=== PATIENT | female | born 2000 | race Two or more races ===

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

== ENCOUNTER 2020-02-07 19:23 | Emergency (ER) | payer SELFPAY ==
[~2020-02-07] VITALS: Ht 165.1 cm; Wt 104.0 kg
[~2020-02-07 19:23] MED LIST changes: +PRED20TA PO
[2020-02-07 19:25] VITALS: BP 131/74
[2020-02-07] MEDS ORDERED: CEPH-264 PO (19:38)
--- NOTE | 2020-02-07 19:38 | PHYS DOC ---
Past History Past Medical History: Asthma, Migraines Additional Past Surgical Histo: [place] teeth Smoking: Non-smoker Alcohol Use: None Drug Use: None General Adult EDM: Chief Complaint: FACE PROBLEM HPI: HPI: 19-year-old female presents with report of pain and swelling to inside of right nostril x 1 week. Patient reports has gotten significantly bigger over last 4 days. Patient denies known trauma. Denies fever or chills. Denies . Review of Systems: Review of Systems: Constitutional: Denies fever or chills Eyes: Denies redness or eye pain HENT: Denies nasal congestion or sore throat; reports pain and swelling to right nostril Respiratory: Denies cough or shortness of breath Cardiovascular: Denies chest pain or palpitations GI: Denies abdominal pain, nausea, or vomiting : Denies dysuria or hematuria Musculoskeletal: Denies back pain or joint pain Integument: Denies rash; reports abscess to inside of right nostril Neurologic: Denies headache, focal weakness or sensory changes Complete systems were reviewed and found to be within normal limits, except as documented in this note. Allergies: Allergies: Allergies Coded Allergies Type Severity Reaction Last Updated Verified No Known Drug Allergies 06/02/18 No Physical Exam: PE: Constitutional: Well developed, well nourished, no acute distress, non-toxic appearance HENT: Normocephalic, atraumatic, oropharynx moist, small pustule to inside of right nare with mild surrounding erythema Eyes: Conjunctiva normal, no discharge Neck: Normal range of motion, no tenderness Lungs & Thorax: No respiratory distress, equal chest rise and fall Skin: Warm, dry, no erythema, abscess as above Neurologic: Alert and oriented X 3, no focal deficits noted Psychologic: Affect normal, judgment normal EKG: EKG: [] Radiology/Procedures: Radiology/Procedures: [] Course & Med Decision Making: Course & Med Decision Making Patient presents with history of present illness and physical exam consistent for small abscess to inner mucosal surface of right nostril. Abscess expressed with Q-tips. Empiric antibiotic ointment applied. Prescription for oral antibiotics provided with instructions to wait until tomorrow. If symptoms worsen or for fever greater than 100.3 F, patient to start oral antibiotic therapy. If symptoms improve, then patient to hold oral antibiotic therapy. Patient stable for discharge with outpatient follow-up with PCP. Discussed findings and plan with patient, who acknowledges understanding and agreement. Pamela Disclaimer: Pamela Disclaimer: This electronic medical record was generated, in whole or in part, using a voice recognition dictation system. Incision and Drainage Incision and Drainage : Site: Right inner nostril Progress Verbal consent obtained. Time out performed. Hand hygiene utilized. Abscess to right nostril mucosal surface expressed with long Qtip with expression of small amount of purulent discharge. Patient tolerated procedure well and without difficulty. Empiric antibiotic ointment applied. Departure Departure: Impression: Primary Impression: Nasal abscess Disposition: HOME, SELF-CARE Condition: STABLE Referrals: PCP,SASHA (PCP) Patient Instructions: Abscess, Care After Additional Instructions: Use over the counter antibiotic ointment (Neosporin) to wound twice daily. Hold oral antibiotics till AM. If symptoms worsen or for fever > 100.3 F then start oral antibiotics as prescribed. Scripts Cephalexin (KEFLEX) 500 Mg Capsule 1 CAP PO QID for Infection for 7 Days, #28 CAP 0 Refills Prov: CARLENE PINA DO 02/07/20 CARLENE PINA DO Feb 07, 2020 19:38
[2020-02-07] MEDS ORDERED: NEOMY/BACITR/POLYMYXIN OINT PACKET. TP ONE (19:45)
== END 2020-02-07 19:45 | disposition home or self-care (01) ==
LOC: ER 19:23
DX: J34.0 Abscess, furuncle and carbuncle of nose (principal); J45.909 Unspecified asthma, uncomplicated; G43.909 Migraine, unspecified, not intractable, without status migrainosus
CPT/HCPCS: 99283

== ENCOUNTER 2020-02-16 13:29 | Emergency (ER) | payer OTHER ==
[~2020-02-16] VITALS: Ht 165.1 cm; Wt 103.7 kg
[2020-02-16] MEDS ORDERED: NALOXONE 2 MG/2 ML DISP.SYRIN. IV ONE ×2 (13:35→14:15)
[2020-02-16 13:56] LABS: BGAS PH 7.44 (7.35-7.45)
[2020-02-16 13:56] LABS: BASO # 0.1 x10^3/uL (0.0-0.2); BASO % 1 % (0-3); EOS # 0.5 x10^3/uL (0.0-0.7); EOS % 3 % (0-3); HEMATOCRIT 47.4 % (36.0-47.0); LYMPH # 4.1 x10^3/uL (1.0-4.8); LYMPH % 27 % (24-48); MEAN CORPUSCULAR HEMOGLOBIN 29 pg (25-35); MEAN CORPUSCULAR HGB CONC 34 g/dL (31-37); MEAN CORPUSCULAR VOLUME 86 fL (79-100); MONO # 0.9 x10^3/uL (0.0-1.1); MONO % 6 % (0-9); NEUT # 9.6 x10^3uL (1.8-7.7); NEUT % 63 % (31-73); PLATELET COUNT 251 x10^3/uL (140-400); RED CELL DISTRIBUTION WIDTH 13.2 % (11.5-14.5); WHITE BLOOD COUNT 15.2 x10^3/uL (4.0-11.0)
--- NOTE | 2020-02-16 14:04 | RAD ---
CHEST AP ONLY Clinical History: Overdose Technique: AP view of the chest was obtained at 02/16/2020 1:44 PM. Comparison: June 02, 2018. Findings: The cardiomediastinal silhouette is normal. The pulmonary vasculature is normal. The lungs and pleural margins are clear. Impression: No evidence of an acute cardiopulmonary process. Electronically signed by: Virgilio Sullivan III, MD (02/16/2020 2:01 PM) [id number]
[2020-02-16 14:09] LABS: ACETAMIN 226.2 mcg/mL (10-30); CALCIUM 9.2 mg/dL (8.5-10.1); CREATININE 0.8 mg/dL (0.6-1.0); GFR 92.4; POTASSIUM 3.7 mmol/L (3.5-5.1)
--- NOTE | 2020-02-16 14:19 | EKG ---
[address] [address] Test Date: 2020-02-16 Test Time: 13:35:24 Pat Name: ABRAHAM BUCKNER Department: Room: Gender: F Checker Loader: : 2000 Requested By: HERIBERTO MAYER Order Number: [id number] Reading MD: Jean Alvarado Measurements Intervals [place] Rate: 122 P: 211 MO: 130 QRS: 100 QRSD: 84 T: 34 QT: 350 QTc: 500 Interpretive Statements SINUS TACHYCARDIA RIGHTWARD AXIS Electronically Signed On 02-18-2020 20:00:20 CDT by Jean Alvarado
[2020-02-16 14:20] LABS: ALBUMIN 3.7 g/dL (3.4-5.0); ALBUMIN/GLOBULIN RATIO 0.9 (1.0-1.7); TOTAL BILIRUBIN 0.7 mg/dL (0.2-1.0); TOTAL PROTEIN 7.9 g/dL (6.4-8.2)
[2020-02-16 14:20] LABS: AMPHETAMINE/METHAMPHETAMINE POS (NEG); BARBITURATES NEG (NEG); BENZODIAZEPINES POS (NEG); CANNABINOIDS POS (NEG); COCAINE POS (NEG); METHADONE NEG (NEG); OPIATES NEG (NEG); PHENCYCLIDINE NEG (NEG)
--- NOTE | 2020-02-16 14:27 | PHYS DOC ---
Past History Past Medical History: Asthma, Migraines Past Surgical History: Other Additional Past Surgical Histo: [place] teeth, tonsilectomy Smoking: Non-smoker Alcohol Use: None Drug Use: None General Adult EDM: Chief Complaint: OVERDOSE HPI: HPI: 19-year-old female presents via EMS as suspected overdose. EMS was called by someone when they arrived on the scene and several people were there stating they think the patient took some pills. They will give conflicting stories and then everyone ran away. The patient was unresponsive. They attempted 1 mg IM of Narcan without effect. She is moving her extremities spontaneously, but cannot follow any commands. She does not provide any history to me. A nasal trumpet was placed in route. They were able to get reasonable oxygen saturations on 15 L with a nonrebreather. Intubation was not attempted. The patient has no known COVID-19 exposures. She has open her eyes spontaneously. Review of Systems: Review of Systems: Constitutional: Denies fever or chills Eyes: Denies change in visual acuity HENT: Denies nasal congestion or sore throat Respiratory: Denies cough or shortness of breath Cardiovascular: Denies chest pain or edema GI: Denies abdominal pain, nausea, vomiting, bloody stools or diarrhea : Denies dysuria Musculoskeletal: Denies back pain or joint pain Integument: Denies rash Neurologic: Denies headache, focal weakness or sensory changes Endocrine: Denies polyuria or polydipsia Lymphatic: Denies swollen glands Psychiatric: Denies depression or anxiety Heart Score: Risk Factors: Risk Factors: DM, Current or recent (<one month) smoker, HTN, HLP, family history of CAD, obesity. Risk Scores: Score 0 - 3: 2.5% MACE over next 6 weeks - Discharge Home Score 4 - 6: 20.3% MACE over next 6 weeks - Admit for Clinical Observation Score 7 - 10: 72.7% MACE over next 6 weeks - Early Invasive Strategies Current Medications: Current Meds: Current Medications Medications (Trade) Dose Ordered Sig/Rosa Start Time Stop Time Status Last Admin Dose Admin Naloxone HCl (Narcan) 2 mg 1X ONCE 02/16/20 14:15 02/16/20 14:16 02/16/20 13:37 2 MG Allergies: Allergies: Allergies Coded Allergies Type Severity Reaction Last Updated Verified No Known Drug Allergies 06/02/18 No Physical Exam: PE: Constitutional: Well developed, well nourished, no acute distress, non-toxic appearance. [] HENT: Normocephalic, atraumatic, bilateral external ears normal, oropharynx moist, no oral exudates, nose normal. [] Eyes: PERRLA, EOMI, conjunctiva normal, no discharge. [] Neck: Normal range of motion, no tenderness, supple, no stridor. [] Cardiovascular:Heart rate regular rhythm, no murmur [] Lungs & Thorax: Bilateral breath sounds clear to auscultation [] Abdomen: Bowel sounds normal, soft, no tenderness, no masses, no pulsatile masses. [] Skin: Warm, dry, no erythema, no rash. [] Back: No tenderness, no CVA tenderness. [] Extremities: No tenderness, no cyanosis, no clubbing, ROM intact, no edema. [] Neurologic: Alert and oriented X 3, normal motor function, normal sensory function, no focal deficits noted. [] Psychologic: Affect normal, judgement normal, mood normal. [] Current Patient Data: Labs: Laboratory Tests Test 02/16/20 13:30 02/16/20 13:40 White Blood Count 15.2 x10^3/uL (4.0-11.0) H Red Blood Count 5.50 x10^6/uL (3.50-5.40) H Hemoglobin 16.0 g/dL (12.0-15.5) H Hematocrit 47.4 % (36.0-47.0) H Mean Corpuscular Volume 86 fL (79-100) Mean Corpuscular Hemoglobin 29 pg (25-35) Mean Corpuscular Hemoglobin Concent 34 g/dL (31-37) Red Cell Distribution Width 13.2 % (11.5-14.5) Platelet Count 251 x10^3/uL (140-400) Neutrophils (%) (Auto) 63 % (31-73) Lymphocytes (%) (Auto) 27 % (24-48) Monocytes (%) (Auto) 6 % (0-9) Eosinophils (%) (Auto) 3 % (0-3) Basophils (%) (Auto) 1 % (0-3) Neutrophils # (Auto) 9.6 x10^3uL (1.8-7.7) H Lymphocytes # (Auto) 4.1 x10^3/uL (1.0-4.8) Monocytes # (Auto) 0.9 x10^3/uL (0.0-1.1) Eosinophils # (Auto) 0.5 x10^3/uL (0.0-0.7) Basophils # (Auto) 0.1 x10^3/uL (0.0-0.2) Platelet Estimate Pending Sodium Level 139 mmol/L (136-145) Potassium Level 3.7 mmol/L (3.5-5.1) Chloride Level 100 mmol/L (98-107) Carbon Dioxide Level 26 mmol/L (21-32) Anion Gap 13 (6-14) Blood Urea Nitrogen 9 mg/dL (7-20) Creatinine 0.8 mg/dL (0.6-1.0) Estimated GFR (Cockcroft-Gault) 92.4 BUN/Creatinine Ratio 11 (6-20) Glucose Level 181 mg/dL (70-99) H Calcium Level 9.2 mg/dL (8.5-10.1) Total Bilirubin Pending Aspartate Amino Transferase (AST) Pending Alanine Aminotransferase (ALT) Pending Alkaline Phosphatase Pending Total Protein Pending Albumin Pending Albumin/Globulin Ratio Pending Salicylates Level 3.0 mg/dL (2.8-20.0) Salicylate Last Dose Date Unknown Salicylate Last Dose Time Unknown Acetaminophen Level 226.2 mcg/mL (10-30) H Acetaminophen Last Dose Date Unknown Acetaminophen Last Dose Time Unknown Blood pH 7.44 (7.35-7.45) Blood Gas PCO2 29 mmHg (35-45) L Blood Gas PO2 55 mmHg (80-100) L Blood Gas HCO3 19 mmol/L (22-26) L Arterial Bld O2 Saturation (Calc) 90 % (92-99) L FiO2 44 % Vital Signs: Vital Signs Date Time Temp Pulse Resp B/P (MAP) Pulse Ox O2 Delivery O2 Flow Rate FiO2 02/16/20 13:29 98.0 138 26 100/58 (72) 100 NonRebreather Mask 15.0 EKG: EKG: Sinus tachycardia, rate 10/25/2021, normal axis, no ST elevations or depressions. [] Radiology/Procedures: Radiology/Procedures: [] Impressions: CHEST AP ONLY Clinical History: Overdose Technique: AP view of the chest was obtained at 02/16/2020 1:44 PM. Comparison: June 02, 2018. Findings: The cardiomediastinal silhouette is normal. The pulmonary vasculature is normal. The lungs and pleural margins are clear. Impression: No evidence of an acute cardiopulmonary process. Electronically signed by: Earl Sullivan III, MD (02/16/2020 2:01 PM) [id number] DICTATED AND SIGNED BY: EARL SULLIVAN III, MD DATE: 02/16/20 1405 CC: HERIBERTO MAYER DO; [facility]; PCP,NO ~ Course & Med Decision Making: Course & Med Decision Making Pertinent Labs and Imaging studies reviewed. (See chart for details) The patient was at 15 L nonrebreather with an oxygen saturation of 99. We were able to decrease therapy incrementally down to 6 L nasal cannula with an oxygen saturation of 92. The patient was given additional 2 mg of Narcan IV. It did not seem to have affect. Every few minutes, the patient will spontaneously move and flail her arms and legs around. She will not follow commands. Her breathing pattern is rapid, but regular. We have no idea what medication she took. Appropriate labs have been ordered. Her ABG showed a pH of 7.4, CO2 28.5 O2 90%. Chest x-ray is unremarkable. The patient's work-up is positive for several illicit drugs. See chart for details. Her acetaminophen level was 226. I have no way of knowing if this is a 4-hour number or less than that. We will attempt to treat her with an NG tube, activated charcoal, and N- acetylcysteine 21-hour protocol. Prior to administration of charcoal, the patient had a moderate to large amount of emesis. There were no pill fragments seen. Charcoal is unlikely to be helpful at this point. I have ordered a repeat 2-hour and 4-hour acetaminophen level. We have already started her N- acetylcysteine bolus. The patient has become somewhat more alert, opening her eyes spontaneously and looking toward me when you call her name. She still will not speak to us. She falls asleep easily. Her oxygen level has stayed within normal limits. Her lactic acid was 4.7. 30 mL/kg of ideal body weight of fluids was ordered. Infection seems unlikely despite her elevated white count. The patient's oxygen saturation continued to decline and was consistently below 90% despite placing her on a rebreather. The decision was made intubate the patient. See intubation note below for more details. I spoke with Dr. Melgar about the patient and he has accepted her for admission and transfer to [facility] 68 minutes of critical care time was spent on this patient exclusive of other billable procedures. [] Dragon Disclaimer: Dragon Disclaimer: This electronic medical record was generated, in whole or in part, using a voice recognition dictation system. Intubation Procedure Intub Indication: [] Hypoxia, altered mental status, drug overdose Consent: [] Assumed consent due to critical condition and inability to make a decision for herself. Medications Used: [] Etomidate and vecuronium Procedure: The patient was placed in the supine position at the top of the bed. Cricoid pressure was not used. Intubation was performed with the glide scope probe and a 7.5 endotracheal tube was placed after 2 attempts.. He was appropriately secured by respiratory therapy. Initial confirmation of placement included bilateral breath sounds. A chest x-ray to verify correct placement of the tube showed good position. The patient tolerated the procedure. Complications: The glide scope was shut off in the middle of the first intubation attempt. The attempt was completed with a MAC 3. It was not successful and reintubation had to be done with a glide scope. Departure Departure: Impression: Primary Impression: Overdose by acetaminophen Qualified Codes: T39.1X2A - Poisoning by 4-aminophenol derivatives, intentional self-harm, initial encounter Additional Impressions: Drug use Suicide attempt by acetaminophen overdose Qualified Codes: T39.1X2A - Poisoning by 4-aminophenol derivatives, intentional self-harm, initial encounter [facility] Admitting Physician: Radu Melgar Condition: GUARDED Referrals: PCP,NO (PCP) HERIBERTO MAYER DO Feb 16, 2020 14:27
[2020-02-16] MEDS ORDERED: IV NORMAL SALINE 1,000ML 1,710 ML IV SCH (14:30)
[2020-02-16] MEDS ORDERED: ACETYLCYSTEINE IV ONE ×2 (14:30)
[2020-02-16] MEDS ORDERED: DEXTROSE 5% IV ONE ×2 (14:30)
[2020-02-16 14:32] LABS: BILIRUBIN,URINE NEG (NEG); CLARITY,URINE HAZY; COLOR,URINE YELLOW; GLUCOSE,URINE NEG (NEG)
[2020-02-16 14:33] LABS: AMORPHOUS SEDIMENT,UR PRESENT /HPF; BACTERIA,URINE 0 /HPF (0-FEW); HYALINE CASTS, URINE MOD /HPF; NITRITE,URINE NEG (NEG); SQUAMOUS EPITHELIAL CELL,UR OCC /LPF; UROBILINOGEN,URINE 0.2 mg/dL (0.2 mg/dL)
[2020-02-16] MEDS ORDERED: IV NORMAL SALINE 1,000ML 1,000 ML IV ONE ×2 (14:45)
[2020-02-16] MEDS ORDERED: CHARCOAL/SORBITOL 25 GM/120 ML SUSPENSION. PO ONE (14:45)
[2020-02-16] MEDS ORDERED: ONDANSETRON PF 4 MG/2 ML VIAL. ONE ×2 (15:16→15:26)
[2020-02-16 15:37] LABS: % ATYL 1 % (0-0); % BANDS 3 % (0-9); % BASOS 1 % (0-3); % EOS 1 % (0-5); % LYMPHS 26 % (24-48); % MONOS 4 % (0-10); % SEGS 64 % (35-66)
[2020-02-16 15:38] LABS: PLATELET CLUMP PRESENT; PLT ESTIMATE ADEQUATE (ADEQUATE)
[2020-02-16] MEDS ORDERED: PROCHLORPERAZINE 10 MG/2 ML VIAL. IV ONE (16:15)
[2020-02-16 16:23] LABS: ACETAMIN 117.9 mcg/mL (10-30)
[2020-02-16] MEDS ORDERED: SUCCINYLCHOLINE 200 MG/10 ML VIAL. ONE (16:51)
[2020-02-16] MEDS ORDERED: ETOMIDATE 40 MG/20 ML VIAL. IV ONE (17:00)
[2020-02-16] MEDS ORDERED: VECURONIUM 10 MG VIAL. IV ONE (17:00)
[2020-02-16] MEDS ORDERED: 0.9 % SODIUM CHLORIDE 10 ML DISP.SYRIN. ONE (17:00)
[2020-02-16] MEDS ORDERED: PROPOFOL 100 ML IV ONE (17:21)
--- NOTE | 2020-02-16 17:28 | RAD ---
CHEST AP ONLY History: Post intubation Comparison: Exam earlier the same day Findings: Single view of the chest is submitted. There is now enteric catheter coursing into the stomach, not fully seen. There is degree of gas distention of the stomach. There is now endotracheal tube, tip about 3 cm from maria g. There is new fairly prominent scattered airspace opacity of the right hemithorax somewhat diffusely other than some sparing at the periphery also new left perihilar and left base airspace opacity. No pneumothorax is identified Impression: 1. There is now endotracheal tube and enteric catheter as stated. There is new bilateral airspace opacity which may be due to edema or infiltrates. Electronically signed by: Luis Miguel Simons MD (02/16/2020 5:25 PM) [facility]
[2020-02-16] MEDS ORDERED: PROPOFOL 10,000 MCG/ML (20ML) VIAL IV ONE (17:30)
[2020-02-16 18:21] LABS: BGAS PH 7.24 (7.35-7.45)
[2020-02-16 18:30] VITALS: BP 130/92
[2020-02-16] MEDS ORDERED: PROPOFOL 100 ML IV PRN (18:45)
== END 2020-02-16 19:30 | disposition short-term general hospital (02) ==
LOC: ER 13:29
DX: T39.1X2A Poisoning by 4-Aminophenol derivatives, intentional self-harm, initial encounter (principal); Y92.89 Other specified places as the place of occurrence of the external cause; J45.909 Unspecified asthma, uncomplicated; G43.909 Migraine, unspecified, not intractable, without status migrainosus
CPT/HCPCS: 31500; 36415; 36600; 51702; 71045; 80053; 80307; 80329; 81001; 82803; 83605; 84484; 85007; 85025; 85610; 85730; 87040; 87086; 93005; 96365; 96366; 96375; 96376; 99291; J0132; J0780; J2310; J2704; G0480; J7030

== ENCOUNTER 2020-05-17 20:24 | Emergency (ER) | payer OTHER ==
[~2020-05-17] VITALS: Ht 165.1 cm; Wt 104.5 kg
[2020-05-17 20:24] VITALS: BP 127/67
[~2020-05-17 20:24] MED LIST changes: +PROM118S10 PO; -PROM118S9 PO
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
== END 2020-05-17 21:40 | disposition left against medical advice (07) ==
LOC: ER 20:24
DX: S00.11XA Contusion of right eyelid and periocular area, initial encounter (principal); S40.862A Insect bite (nonvenomous) of left upper arm, initial encounter; S40.861A Insect bite (nonvenomous) of right upper arm, initial encounter; M54.2 Cervicalgia; R07.9 Chest pain, unspecified; Y00.XXXA Assault by blunt object, initial encounter; W57.XXXA Bitten or stung by nonvenomous insect and other nonvenomous arthropods, initial encounter; Y93.89 Activity, other specified; Y92.89 Other specified places as the place of occurrence of the external cause; Y99.8 Other external cause status
CPT/HCPCS: 70450; 70486; 71250; 72125; 81025; 99285-25

== ENCOUNTER 2020-06-05 14:33 | Emergency (ER) | payer SELFPAY ==
[~2020-06-05] VITALS: Ht 165.1 cm; Wt 104.5 kg
[2020-06-05] MEDS ORDERED: ALPRAZolam 0.25 MG TABLET PO ONE (14:45)
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
[2020-06-05 15:30] VITALS: BP 136/78
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
== END 2020-06-05 15:59 | disposition home or self-care (01) ==
LOC: EEVIPCON 14:33 → ER 14:33
DX: S00.01XA Abrasion of scalp, initial encounter (principal); X95.9XXA Assault by unspecified firearm discharge, initial encounter; Y93.89 Activity, other specified; Y92.89 Other specified places as the place of occurrence of the external cause; Y99.8 Other external cause status; R51 Headache
CPT/HCPCS: 70450; 99284-25